=== PATIENT | male | born 1940 | race Caucasian/White ===

== ENCOUNTER 2021-06-20 10:22 | Outpatient (CLI) | payer OTHER | END 2021-06-20 10:27 | disposition home or self-care (01) | LOC: SONOGRAMA 10:22 | PROVIDERS: ATTEND Pathology Anatomic Pathology & Clinical Pathology | DX: D34 Benign neoplasm of thyroid gland (principal); E04.8 Other specified nontoxic goiter; E07.89 Other specified disorders of thyroid ==